=== PATIENT | male | born 1940 | race Caucasian/White ===

== ENCOUNTER → 2016-07-10 | Outpatient (CLI) | payer OTHER ==
--- NOTE | ~2016-07-10 | 2DMMODE ---
[facility] [place] [address] 2 D/M-MODE ECHOCARDIOGRAM Name: ABDON BARBA Room #: REG Vignesh#: [id number] Admission: 07/10/16 Attend Phys: Jamie Montoya MD Discharge: Date of : 36 Date of Service: 07/10/16 1241 Report #: [id number] THIS REPORT FOR: //name// Transthoracic Echocardiography Ordering physician: Jamie Montoya MD Referring physician: Danika Dover MD Blood Or Blood Bank Technician: Nikky Pulido Indications/History: CAD, Afib. Hx: Stent, DM, HTN, HLP BP: 136 / HR: 58bpm Height: 75in Weight: 229.5lb 76 Study data: M-mode, complete 2D, complete spectral Doppler, and color Doppler. Location: Echo laboratory. Routine. Image quality was adequate. 2D measurements Normal Normal LVID ED 55.5mm 36-57 IVS ED 13.4mm 6-11 LVID ES 39.7mm 23-40 LVPW ED 11.9mm 6-11 LA volume 46ml/m2 16-28 AoRoot diam 39.1mm 21-37 index ED LVOT diameter 22mm 18-23 Findings: Left ventricle: The cavity size was normal. Wall thickness was increased in a pattern of mild LVH. Systolic function was normal. The estimated ejection fraction was in the range of 60% to 65%. Wall motion was normal. Right ventricle: The cavity size was normal. Systolic function was normal. Right atrium: The atrium was mildly dilated. Left atrium: The atrium was moderately dilated. Volume index: 46ml/m2 (S). Aortic valve: Structurally normal valve. Mildly sclerotic leaflets. Doppler: There was no stenosis. Trivial regurgitation. Peak velocity: 123.8cm/s (S). [facility] [address] [place] [address] 2 D/M-MODE ECHOCARDIOGRAM Name: ABDON BARBA Room #: REG CL Alona#: [id number] Admission: 07/10/16 Attend Phys: Jamie Montoya MD Discharge: Date of : 36 Date of Service: 07/10/16 1241 Report #: [id number] Mitral valve: Mildly calcified annulus. Mildly calcified leaflets . Doppler: There was no evidence for stenosis. Mild regurgitation. Peak E-wave velocity: 124.2cm/s. Peak gradient: 6.2mm Hg (D). Tricuspid valve: Structurally normal valve. Doppler: There was no evidence for stenosis. Mild regurgitation. Regurgitant peak velocity: 266.1cm/s. Peak RV-RA gradient: 28mm Hg (S). Pulmonic valve: Structurally normal valve. Doppler: There was no evidence for stenosis. Mild to moderate regurgitation. Pericardium: There was no pericardial effusion. Aorta: Aortic root: The aortic root was at the upper limitnormal in size. Pulmonary artery: Systolic pressure was estimated to be 33mm Hg. Diastolic function: The study was not technically sufficient to allow evaluation of LV diastolic dysfunction due to atrial fibrillation. Systemic veins: Inferior vena cava: The vessel was normal in size; the respirophasic diameter changes were in the normal range (= 50%). Conclusions 1. Left ventricle: The cavity size was normal. Wall thickness was increased in a pattern of mild LVH. Systolic function was normal. The estimated ejection fraction was in the range of 60% to 65%. 2. Right atrium: The atrium was mildly dilated. 3. Left atrium: The atrium was moderately dilated. 4. Aortic valve: Structurally normal valve. Mildly sclerotic leaflets. There was no stenosis. 5. Mitral valve: Mild regurgitation. 6. Tricuspid valve: Mild regurgitation. 7. Pericardium, extracardiac: There was no pericardial effusion. <ELECTRONICALLY SIGNED> By: Jamie Montoya MD 07/10/16 1337 [id number] [id number] Jamie Montoya MD /[place]
== END ==
LOC: CV 12:28
DX: I25.10 Atherosclerotic heart disease of native coronary artery without angina pectoris (principal); I48.91 Unspecified atrial fibrillation; I07.1 Rheumatic tricuspid insufficiency; I34.0 Nonrheumatic mitral (valve) insufficiency

== ENCOUNTER → 2017-01-11 | Outpatient (CLI) | payer OTHER | LOC: ULTRA 10:34 | DX: N18.3 Chronic kidney disease, stage 3 (moderate) (principal); I25.10 Atherosclerotic heart disease of native coronary artery without angina pectoris ==